=== PATIENT | female | born 1985 | race Caucasian/White ===

== ENCOUNTER 2018-02-09 19:57 | Inpatient (IN) | payer BC, OTHER ==
[2018-02-09] MEDS: ONDANSETRON 4 MG INJ IV (20:35)
[2018-02-09] MEDS: FAMOTIDINE 20 MG INJ IV (20:36)
[2018-02-09] MEDS: morphine 2 MG INJ IV (20:36)
[2018-02-09] MEDS: SOD CHLORIDE 0.9% 1,000 ML IV (20:36)
[2018-02-09] MEDS: LIDOCAINE/MYLANTA 40 ML BTL PO (20:36)
[2018-02-09 20:38] LABS: URINE BLOOD (Dip) POC Negative (NEGATIVE); URINE GLUCOSE (Dip) POC Negative (NEGATIVE); URINE KETONES (Dip) POC 3+ (NEGATIVE); URINE LEUKOCYTE EST (Dip) POC Negative (NEGATIVE); URINE NITRITE (Dip) POC Positive (NEGATIVE); URINE TOTAL PROTEIN POC Negative (NEGATIVE)
[2018-02-09 21:34] LABS: ADD MAN DIFF? NO
[2018-02-09 21:36] LABS: BASOPHIL # 0.1 10^3/ul (0.0-0.1); BASOPHILS % 0.3 % (0.0-2.0); EOSINOPHILS # 0.1 10^3/ul (0.0-0.5); EOSINOPHILS % 0.4 % (0.0-7.0); HEMATOCRIT 40.1 % (37.0-47.0); HEMOGLOBIN 13.3 g/dl (12.0-16.0); LYMPHOCYTES # 1.1 10^3/ul (0.8-2.9); LYMPHOCYTES % 6.1 % (15.0-51.0); MEAN CORPUSCULAR HEMOGLOBIN 29.2 pg (29.0-33.0); MEAN CORPUSCULAR HGB CONC 33.2 g/dl (32.0-37.0); MEAN CORPUSCULAR VOLUME 88.1 fl (82.0-101.0); MEAN PLATELET VOLUME 11.7 fl (7.4-10.4); MONOCYTE # 0.7 10^3/ul (0.3-0.9); MONOCYTES % 3.9 % (0.0-11.0); NEUTROPHIL # 15.7 10^3/ul (1.6-7.5); NEUTROPHILS % 88.9 % (39.0-77.0); PLATELET COUNT 264 10^3/UL (140-415); RED BLOOD COUNT 4.55 10^6/ul (4.20-5.40); RED CELL DISTRIBUTION WIDTH 12.7 % (11.5-14.5)
[2018-02-09 21:36] LABS: WHITE BLOOD COUNT 17.7 10^3/ul (4.8-10.8)
[2018-02-09 21:54] LABS: ALANINE AMINOTRANSFERASE 27 IU/L (13-69); ALBUMIN 4.2 g/dl (3.3-4.9); ALBUMIN/GLOBULIN RATIO 1.27; ALKALINE PHOSPHATASE 91 IU/L (42-121); ANION GAP 13 (8-16); ASPARTATE AMINO TRANSFERASE 23 IU/L (15-46); BILIRUBIN,INDIRECT 0.1 mg/dl (0-1.1); BILIRUBIN,TOTAL 0.1 mg/dl (0.2-1.3); BLOOD UREA NITROGEN 11 mg/dl (7-20); CALCIUM 9.3 mg/dl (8.4-10.2); CARBON DIOXIDE 29 mmol/L (21-31); CHLORIDE 102 mmol/L (97-110); CREATININE 0.67 mg/dl (0.44-1.00); GLUCOSE 98 mg/dl (70-220); LIPASE 50 U/L (23-300); POTASSIUM 4.1 mmol/L (3.5-5.1); SODIUM 140 mmol/L (135-144); TOTAL PROTEIN 7.5 g/dl (6.1-8.1)
[2018-02-09 21:55] LABS: INR 0.93; PROTIME 12.5 Sec (11.9-14.9)
[2018-02-09 21:56] LABS: PARTIAL THROMBOPLASTIN TIME 25.9 Sec (25.0-35.0)
[2018-02-09 22:35] LABS: ADD UMIC YES; UR ASCORBIC ACID NEGATIVE (NEGATIVE); UR BACTERIA FEW /HPF (NONE SEEN); UR BILIRUBIN (Dip) NEGATIVE (NEGATIVE); UR BLOOD (Dip) 1+ mg/dL (NEGATIVE); UR CLARITY SLIGHTLY CLOUDY (CLEAR); UR COLOR YELLOW (YELLOW); UR GLUCOSE (Dip) NEGATIVE (NEGATIVE); UR KETONES (Dip) 2+ mg/dL (NEGATIVE); UR LEUKOCYTE ESTERASE (Dip) NEGATIVE Leu/ul (NEGATIVE); UR MUCUS FEW /HPF (NONE SEEN); UR NITRITE (Dip) POSITIVE (NEGATIVE); UR RBC 1 /HPF (0-5); UR SPECIFIC GRAVITY (Dip) 1.015 (1.003-1.030); UR SQUAMOUS EPITHELIAL CELL FEW /HPF (FEW); UR TOTAL PROTEIN (Dip) NEGATIVE (NEGATIVE); UR UROBILINOGEN (Dip) NEGATIVE (NEGATIVE); UR WBC 4 /HPF (0-5)
[2018-02-09] MEDS: PIPER-TAZO 3.375 GM IV (PMX) 100 ML IVPB (23:02)
[2018-02-09] MEDS: morphine 10 MG INJ IV (23:25)
[2018-02-10] MEDS ORDERED: ACETAMINOPHEN 325 MG TAB PO ×2
[2018-02-10] MEDS ORDERED: ONDANSETRON 4 MG INJ IV ×2
[2018-02-10] MEDS ORDERED: NACL 0.9% 3 ML SYG IV
[2018-02-10] MEDS: SOD CHLORIDE 0.9% 1,000 ML IV ×3 (01:25→19:43)
[2018-02-10] MEDS: HYDROmorphONE 0.5 MG/0.5 ML SYG IV ×4 (02:17→21:28)
[2018-02-10] MEDS: SOD CHLORIDE 0.9% 500 ML IV (03:30)
[2018-02-10 05:21] LABS: ADD MAN DIFF? NO
[2018-02-10 05:25] LABS: WHITE BLOOD COUNT 10.6 10^3/ul (4.8-10.8)
[2018-02-10 05:25] LABS: BASOPHILS % 0.3 % (0.0-2.0); EOSINOPHILS % 0.3 % (0.0-7.0); HEMATOCRIT 36.3 % (37.0-47.0); HEMOGLOBIN 11.8 g/dl (12.0-16.0); LYMPHOCYTES # 1.4 10^3/ul (0.8-2.9); LYMPHOCYTES % 12.9 % (15.0-51.0); MEAN CORPUSCULAR HEMOGLOBIN 28.6 pg (29.0-33.0); MEAN CORPUSCULAR HGB CONC 32.5 g/dl (32.0-37.0); MEAN CORPUSCULAR VOLUME 88.1 fl (82.0-101.0); MEAN PLATELET VOLUME 11.4 fl (7.4-10.4); MONOCYTE # 0.6 10^3/ul (0.3-0.9); MONOCYTES % 5.5 % (0.0-11.0); NEUTROPHIL # 8.5 10^3/ul (1.6-7.5); NEUTROPHILS % 80.7 % (39.0-77.0); PLATELET COUNT 233 10^3/UL (140-415); RED BLOOD COUNT 4.12 10^6/ul (4.20-5.40)
[2018-02-10 05:40] LABS: HEMOGLOBIN A1C 5.1 % (0-5.9)
[2018-02-10 05:44] LABS: ALANINE AMINOTRANSFERASE 23 IU/L (13-69); ALBUMIN 3.5 g/dl (3.3-4.9); ALBUMIN/GLOBULIN RATIO 1.25; ALKALINE PHOSPHATASE 68 IU/L (42-121); ANION GAP 9 (8-16); ASPARTATE AMINO TRANSFERASE 19 IU/L (15-46); BILIRUBIN,INDIRECT 0.1 mg/dl (0-1.1); BILIRUBIN,TOTAL 0.1 mg/dl (0.2-1.3); BLOOD UREA NITROGEN 8 mg/dl (7-20); CALCIUM 8.4 mg/dl (8.4-10.2); CARBON DIOXIDE 29 mmol/L (21-31); CHLORIDE 108 mmol/L (97-110); CHOL/HDL RATIO 2.4 RATIO; CHOLESTEROL 147 mg/dl (100-200); CREATININE 0.69 mg/dl (0.44-1.00); GLUCOSE 99 mg/dl (70-220); HDL CHOLESTEROL 60 mg/dl (34-82); LDL CHOLESTEROL,CALCULATED 71 mg/dl; POTASSIUM 4.1 mmol/L (3.5-5.1); SODIUM 142 mmol/L (135-144); TOTAL PROTEIN 6.3 g/dl (6.1-8.1); TRIGLYCERIDES 81 mg/dl (0-149)
[2018-02-10] MEDS: PIPER-TAZO 3.375 GM IV (PMX) 100 ML IVPB ×3 (06:04→17:27)
[2018-02-10] MEDS ORDERED: GLYCOPYRROLATE 0.4 MG INJ (07:00)
[2018-02-10] MEDS ORDERED: ROCURONIUM 50 MG INJ (07:00)
[2018-02-10] MEDS ORDERED: METOCLOPRAMIDE 10 MG INJ (14:05)
[2018-02-10] MEDS ORDERED: MIDAZOLAM 1 MG/ML 2 ML INJ ×2 (14:05→15:13)
[2018-02-10] MEDS ORDERED: ROPIVACAINE 0.5 % 30 ML VIAL (14:11)
[2018-02-10] MEDS ORDERED: MEPERIDINE 25 MG INJ IV (14:30)
[2018-02-10] MEDS ORDERED: HYDROmorphONE (0.2 MG/ML) 10ML SYG IV ×2 (14:30)
[2018-02-10] MEDS ORDERED: EPHEDrine SULFATE 50 MG/5 ML SYG IV (14:30)
[2018-02-10] MEDS ORDERED: DIPHENHYDRAMINE 50 MG INJ IV (14:30)
[2018-02-10] MEDS ORDERED: NEOSTIGMINE 3 MG/3 ML SYRINGE (14:34)
[2018-02-10] MEDS ORDERED: PROPOFOL 20 ML (14:34)
[2018-02-10] MEDS ORDERED: KETOROLAC 30 MG INJ (14:34)
[2018-02-10] MEDS ORDERED: ONDANSETRON 4 MG INJ (14:34)
[2018-02-10] MEDS: BUPIVACAINE 0.25% (MPF) 30 ML INJ (14:39)
[2018-02-10] MEDS: LIDOCAINE 1%/EPI 30 ML INJ (14:39)
[2018-02-10] MEDS: ONDANSETRON 4 MG INJ IV (15:22)
[2018-02-10] MEDS: HYDROmorphONE (0.2 MG/ML) 10ML SYG IV (15:22)
[2018-02-10] MEDS: MIDAZOLAM 1 MG/ML 2 ML INJ IV (15:23)
[2018-02-10] MEDS: KETOROLAC 15 MG INJ IV (17:27)
[2018-02-11] MEDS: KETOROLAC 15 MG INJ IV ×2 (00:44→06:52)
[2018-02-11] MEDS: PIPER-TAZO 3.375 GM IV (PMX) 100 ML IVPB ×3 (00:44→11:45)
[2018-02-11] MEDS: SOD CHLORIDE 0.9% 1,000 ML IV ×2 (05:43→15:43)
[2018-02-11] MEDS: HYDROCODONE/APAP (5/325) TAB PO ×2 (11:46→15:42)
== END 2018-02-11 17:56 | disposition home or self-care (01) | DRG 340 ==
LOC: MS3 23:40 → FTE 19:57
PROC: 0DTJ4ZZ Resection of Appendix, Percutaneous Endoscopic Approach (ICD-10-PCS; principal; 2018-02-10 14:04)
DX: K35.3 Acute appendicitis with localized peritonitis (principal); F17.290 Nicotine dependence, other tobacco product, uncomplicated; F12.90 Cannabis use, unspecified, uncomplicated; F41.9 Anxiety disorder, unspecified; D64.9 Anemia, unspecified; F32.9 Major depressive disorder, single episode, unspecified; N83.201 Unspecified ovarian cyst, right side; K40.90 Unilateral inguinal hernia, without obstruction or gangrene, not specified as recurrent; R11.2 Nausea with vomiting, unspecified
CPT/HCPCS: 36415; 74176; 80053; 80061; 81001; 81003; 81025; 83036; 83690; 83735; 84443; 85025; 85610; 85730; 87086; 88304; 96361; 96365; 96375; 96376; 99285-25

== ENCOUNTER 2018-04-15 21:59 | Emergency (ER) | payer BC ==
[2018-04-16] MEDS: HYDROCODONE/APAP (5/325) TAB PO (01:08)
== END 2018-04-16 02:51 | disposition home or self-care (01) ==
LOC: FTE 21:59
DX: S70.02XA Contusion of left hip, initial encounter (principal); S20.212A Contusion of left front wall of thorax, initial encounter; S20.222A Contusion of left back wall of thorax, initial encounter; W01.198A Fall on same level from slipping, tripping and stumbling with subsequent striking against other object, initial encounter; Y92.9 Unspecified place or not applicable
CPT/HCPCS: 71100; 72100; 73502; 73510; 81025; 99284-25

== ENCOUNTER → 2019-06-06 | Emergency (ER) | payer BC ==
[2019-06-06] MEDS: ONDANSETRON (ODT) 4 MG TAB ODT (11:31)
[2019-06-06] MEDS: HYDROCODONE/APAP (5/325) TAB PO (11:31)
[2019-06-06 11:34] LABS: ADD MAN DIFF? NO
[2019-06-06 11:36] LABS: WHITE BLOOD COUNT 5.7 10^3/ul (4.8-10.8)
[2019-06-06 11:36] LABS: BASOPHIL # 0.1 10^3/ul (0.0-0.1); BASOPHILS % 0.9 % (0.0-2.0); EOSINOPHILS # 0.1 10^3/ul (0.0-0.5); EOSINOPHILS % 1.7 % (0.0-7.0); HEMATOCRIT 41.8 % (37.0-47.0); HEMOGLOBIN 13.4 g/dl (12.0-16.0); LYMPHOCYTES # 1.3 10^3/ul (0.8-2.9); LYMPHOCYTES % 22.7 % (15.0-51.0); MEAN CORPUSCULAR HEMOGLOBIN 28.6 pg (29.0-33.0); MEAN CORPUSCULAR HGB CONC 32.1 g/dl (32.0-37.0); MEAN CORPUSCULAR VOLUME 89.1 fl (82.0-101.0); MONOCYTE # 0.4 10^3/ul (0.3-0.9); MONOCYTES % 7.3 % (0.0-11.0); NEUTROPHIL # 3.9 10^3/ul (1.6-7.5); NEUTROPHILS % 67.2 % (39.0-77.0); PLATELET COUNT 225 10^3/UL (140-415); RED BLOOD COUNT 4.69 10^6/ul (4.20-5.40); RED CELL DISTRIBUTION WIDTH 12.5 % (11.5-14.5)
[2019-06-06 11:47] LABS: ADD UMIC YES; UR ASCORBIC ACID NEGATIVE (NEGATIVE); UR BACTERIA FEW /HPF (NONE SEEN); UR BILIRUBIN (Dip) NEGATIVE (NEGATIVE); UR BLOOD (Dip) NEGATIVE (NEGATIVE); UR CLARITY CLEAR (CLEAR); UR COLOR YELLOW (YELLOW); UR GLUCOSE (Dip) NEGATIVE (NEGATIVE); UR KETONES (Dip) NEGATIVE (NEGATIVE); UR LEUKOCYTE ESTERASE (Dip) NEGATIVE Leu/ul (NEGATIVE); UR NITRITE (Dip) POSITIVE (NEGATIVE); UR RBC 0 /HPF (0-5); UR SPECIFIC GRAVITY (Dip) 1.005 (1.003-1.030); UR TOTAL PROTEIN (Dip) NEGATIVE (NEGATIVE); UR UROBILINOGEN (Dip) NEGATIVE (NEGATIVE); UR WBC 2 /HPF (0-5)
[2019-06-06 11:54] LABS: ALANINE AMINOTRANSFERASE 26 IU/L (13-69); ALBUMIN 4.5 g/dl (3.3-4.9); ALKALINE PHOSPHATASE 66 IU/L (42-121); ANION GAP 8 (5-13); ASPARTATE AMINO TRANSFERASE 25 IU/L (15-46); BILIRUBIN,INDIRECT 0.4 mg/dl (0-1.1); BILIRUBIN,TOTAL 0.4 mg/dl (0.2-1.3); BLOOD UREA NITROGEN 9 mg/dl (7-20); CALCIUM 9.5 mg/dl (8.4-10.2); CARBON DIOXIDE 26 mmol/L (21-31); CHLORIDE 105 mmol/L (97-110); CREATININE 0.67 mg/dl (0.44-1.00); Estimated GFR > 60 mL/min (>60); GLUCOSE 94 mg/dl (70-220); LIPASE 75 U/L (23-300); POTASSIUM 4.4 mmol/L (3.5-5.1); SODIUM 139 mmol/L (135-144); TOTAL PROTEIN 7.5 g/dl (6.1-8.1)
== END | disposition home or self-care (01) ==
LOC: FTE 10:40
DX: N39.0 Urinary tract infection, site not specified (principal); N83.201 Unspecified ovarian cyst, right side
CPT/HCPCS: 36415; 76856; 80053; 81001; 81025; 83690; 84703; 85025; 99284-25